=== PATIENT | female | born 1955 | race Caucasian/White ===

== ENCOUNTER 2023-02-05 09:38 | Emergency (ER) | payer MEDICARE, SELFPAY ==
[2023-02-05 09:38] VITALS: BP 145/80; PULSE 65; RESP 15; TEMP 36; O2SAT 100; BMI 26.5
--- NOTE | 2023-02-05 09:41 | RAD_ITS ---
HISTORY: INJURY. TECHNIQUE: XR Hand Min 3 Views. COMPARISON: None. FINDINGS: BONES : Chronic appearing avulsion fracture at the dorsal aspect of the second distal phalanx. Mild cortical irregularity at the base of the fifth metacarpal with overlying soft tissue swelling. JOINTS: No dislocation. Mild degenerative change with interphalangeal joint space narrowing and small osteophytes. RAD/Hand Min 3 Views IMPRESSION: Suspect nondisplaced fracture at the base of the fifth metacarpal. Mild osteoarthritis of the right hand. Electronically Signed: Nishi Sullivan MD at 10:18 EDT ,
--- NOTE | 2023-02-05 11:04 | EDS_ITS ---
HPI History of Present Illness Chief Complaint: Upper Extremity Injury Informant: patient Narrative Narrative: Yesterday patient tripped and fell while outside on the sidewalk. She was walking her dog and the dog's lead got in the way and she tripped over it, fal ling to the pavement against her right hand. This morning it is more bruised and still very sore and she presents to ensure that she did not fracture something. She is right-hand dominant. Pain in the wrist but she can move it pretty well. No other injuries. [facility] Medical History Diabetes mellitus HLD (hyperlipidemia) HTN (hypertension) Home Medications bupropion HCl 100 mg tablet 100 mg PO DAILY 03/25/14 [History Last Taken Unknown] cholecalciferol (vitamin D3) 25 mcg (1,000 unit) capsule (Vitamin D3) unit PO BID 03/25/14 [History Last Taken Unknown] fluoxetine 20 mg capsule 60 mg PO DAILY 03/25/14 [History Last Taken Unknown] hydrochlorothiazide 25 mg tablet 25 mg PO DAILY #30 tabs 03/25/14 [Rx Last Taken Unknown] levothyroxine 150 mcg tablet 150 mcg PO DAILY 03/25/14 [History Last Taken Unknown] lisinopril 10 mg-hydrochlorothiazide 12.5 mg tablet (Zestoretic) 0.5 tab PO DAILY 03/25/14 [History Last Taken Unknown] multivitamin,hp-ulmc-xsoewmuc 27 mg-0.4 mg tablet (Therems-M) 1 tab PO DAILY 03/25/14 [History Last Taken Unknown] omega-3 fatty acids-fish oil 340 mg-1,000 mg capsule (Fish Oil) 1 ea PO BID 03/25/14 [History Last Taken Unknown] prednisone 10 mg tablet 10 mg PO DAILY ##48 03/25/14 [Rx Last Taken Unknown] pregabalin 25 mg capsule 50 mg PO BID 03/25/14 [History Last Taken Unknown] Allergy/AdvReac Type Severity Reaction Status Date / Time meperidine HCl [From Demerol] Allergy Itching Verified 03/25/14 15:34 erythromycin base AdvReac Vomiting Verified 03/25/14 15:34 [Erythromycin Base] NSAIDS (Non-Steroidal AdvReac Other Verified 03/25/14 15:34 Anti-Inflamma Social History Smoking Status: Never smoker ROS ROS ED Constitutional Constitutional ED: Denies chills or fever(s) Musculoskeletal Musculoskeletal: Reports extremity pain; Denies neck pain Integumentary Denies Abrasions, rash or wounds Neurologic Neurologic: Denies paresthesias or weakness EXAM Physical Exam Const Vital Signs: 02/05/23 09:38 Temperature 96.8 F L Temperature Source Temporal Pulse Rate 65 Respiratory Rate 15 Blood Pressure 145/80 H Blood Pressure Mean 101 Pulse Ox 100 Oxygen Delivery Method Room Air Positive well nourished and well developed General Appearance ED: well developed and NAD Neck full ROM and supple Back/Spine normal ROM and normal to inspection Extremity Extremity Narrative: Ecchymosis in the middle of the palm of the right hand, in addition to the dorsum of the hand more to the ulnar aspect. Diffuse tenderness throughout this area, metacarpals 3, 4, 5. The MCPJ's are nontender, there is no rotational deformity of any of the fingers, she can move them fully, and all FDS, FDP, and extensor tendon function is intact. No tenderness at the distal radius or the carpus there, and no pain with axial loading of the thumb. She does have some tenderness in the carpus at the ulnar aspect but not the distal ulna. She can move the wrist without difficulty. Neuro oriented x3, no focal motor deficits and no sensory deficits noted Sensorium / Orientation: alert Psych mental status grossly normal and thought process normal Skin no wounds Rashes: no rashes MDM MDM MDM Narrative Medical decision making narrative: Three-view x-ray series of the right hand appears to show a nondisplaced fracture across the base of the fifth metacarpal, radiology report in agreement. Patient was splinted see the procedure note, offered analgesics she declined she has Tylenol and ibuprofen at home and she will follow-up with orthopedics as an outpatient. We will refer her locally, this appears to be low likelihood that I will be surgical so I do not think she needs to see hand unless orthopedics think she needs to be referred up. Radiography Diagnostic Testing: Clinical Impression(s) from Imaging Studies Hand X-Ray 02/05/23 09:41 IMPRESSION: Suspect nondisplaced fracture at the base of the fifth metacarpal. Mild osteoarthritis of the right hand. Electronically Signed: Nishi Sullivan MD at 10:18 EDT , Procedures Upper Extremity Splints Upper Extremity Splint: Orthoglass and Ulnar gutter (Neurovascularly intact distally after placement.) Splint Fabrication: Fabricated Location: Right Discharge Plan Triage Chief Complaint: Upper Extremity Injury ED Provider: Getachew Yousif Dx/Rx/DC Orders Clinical Impression: Closed fracture of base of fifth metacarpal bone of right hand Instructions: Splint Care, ED Closed Hand Fracture (Adult) Prescriptions: No Action bupropion HCl 100 MG tablet 100 mg PO DAILY levothyroxine 150 MCG tablet 150 mcg PO DAILY Label Comments: DOES NOT TAKE ON TUES lisinopril-hydrochlorothiazide [Zestoretic] 1 TABLET tablet 0.5 tab PO DAILY fluoxetine 20 MG capsule 60 mg PO DAILY cholecalciferol (vitamin D3) [Vitamin D3] 1,000 UNIT capsule PO BID multivitamin,ek-uqyw-nvfphidf [Therems-M] 1 TABLET tablet 1 tab PO DAILY pregabalin 25 MG capsule 50 mg PO BID omega-3 fatty acids-fish oil [Fish Oil] 1 EACH capsule 1 ea PO BID prednisone 10 MG tablet 10 mg PO DAILY Qty: 48 0RF Rx Instructions: 6 po qd x 3 days, 4 po qd x 3 days, 2 po qd x 3 days, 1 po qd x 3 days hydrochlorothiazide 25 MG tablet 25 mg PO DAILY Qty: 30 1RF Primary Care Provider: Bob Rucker Referrals: Oscar Mcdonald DO [Med Staff - Active Staff] - As soon as possible Disposition Disposition: Home, Self Care
== END 2023-02-05 11:15 | disposition home or self-care (01) ==
PROVIDERS: Emergency Provider Emergency Medicine; PCP Family Medicine; Visit Provider Emergency Medicine
DX: S62.316A Displaced fracture of base of fifth metacarpal bone, right hand, initial encounter for closed fracture (principal); E11.9 Type 2 diabetes mellitus without complications; I10 Essential (primary) hypertension; E78.5 Hyperlipidemia, unspecified; Z79.899 Other long term (current) drug therapy; W01.198A Fall on same level from slipping, tripping and stumbling with subsequent striking against other object, initial encounter; Y93.K1 Activity, walking an animal; Y92.89 Other specified places as the place of occurrence of the external cause
CPT/HCPCS: 73130; 99282

== ENCOUNTER 2023-04-18 16:42 | Emergency (ER) | payer MEDICARE, SELFPAY ==
[2023-04-18 16:43] VITALS: BP 168/87; PULSE 71; RESP 18; TEMP 36.1; O2SAT 100; BMI 28.3
--- NOTE | 2023-04-18 16:49 | ED.RN ---
DR GARBER AND OMID MADE AWARE OF PT'S SYMPTOMS, NO STROKE ALERT AT THIS TIME.
[2023-04-18 17:15] VITALS: BMI 28.8
--- NOTE | 2023-04-18 18:01 | CT_ITS ---
EXAM: CT ORBITS WITH INTRAVENOUS CONTRAST CLINICAL INDICATION: left eye pain TECHNIQUE: Helically acquired images were obtained of the orbits. Multiplanar reformations were reviewed. Study was performed with intravenous contrast. This CT exam was performed using one or more of the following dose reduction techniques: automated exposure control, adjustment of the mA and/or kV according to patient size, and/or use of iterative reconstruction technique. CONTRAST: IV 50mL [id number]-[id number] COMPARISON: No relevant prior studies available. FINDINGS: ORBITS: Left ocular hemorrhage. Prior retinal banding. SINUSES: Unremarkable. Clear. BONES/JOINTS: No acute fracture. SOFT TISSUES: Unremarkable. No focal subcutaneous swelling. No discrete fluid collections. No enhancing lesion. CT/Orb Sella Post Fossa Ear W/CON IMPRESSION: Left ocular hemorrhage with prior retinal banding. Electronically Signed: Corine Armenta MD at 19:49 EDT Reading Location ID and State: [id number] / Tel , Service support ,
--- NOTE | 2023-04-18 18:01 | CT_ITS ---
STUDY: CT BRAIN WITHOUT CONTRAST REASON FOR EXAM: Female, 67 years old. left eye pain RADIATION DOSAGE (If Supplied By Facility): CTDIvol = ( 44.99 ) mGy, DLP = ( 749.49 ) mGycm TECHNIQUE: Transaxial CT imaging of the brain was performed without administration of intravenous contrast material. Individualized dose optimization techniques were used for this CT. COMPARISON: No relevant priors. FINDINGS: Normal soft tissue structures. Normal calvarium. There is mild cerebral atrophy with widening of the extra-axial spaces and ventricular dilatation. There are areas of decreased attenuation within the white matter tracts of the supratentorial brain, consistent with microvascular disease changes. There is no intracranial hemorrhage. There are no findings of an acute ischemic infarction. Normal visualized paranasal sinuses. Left ocular hemorrhage with prior retinal banding. CT/Brain/Head without Contrast IMPRESSION: No acute intracranial findings. Microvascular ischemic changes. Atrophy. Left ocular hemorrhage. Electronically Signed: Corine Armenta MD at 19:51 EDT Reading Location ID and State: [id number] / Tel , Service support ,
--- NOTE | 2023-04-18 18:19 | EX.ED.DYSGE1 ---
HPI History of Present Illness Chief Complaint: Neuro S/Sx Narrative Narrative: 67-year-old female presenting from her primary care office ([facility]) for evaluation. Patient states that she has had weeks of intermittent night sweats and she decided she was going to see her primary care physician because it became more persistent. She states that when she went into the office he started asking her if she had any other problems and was concerned about her left eye. He stated to her that her left eye looked like it was bulging. She states that she has had history of retinal tears 3 times that she had surgeries on the eye. She states she never looks at herself really she does not really have vision in that eye. She denies any eye pain. Neither her or her daughter noticed anything about the eye until after it was pointed out by her primary care physician. She has not had any slurred speech, new visual complaints, inability to move her arms or legs. Denies headaches. Denies fevers. [facility] Medical History Diabetes mellitus HLD (hyperlipidemia) HTN (hypertension) Home Medications bupropion HCl 100 mg tablet 100 mg PO DAILY 03/25/14 [History Last Taken Unknown] cholecalciferol (vitamin D3) 25 mcg (1,000 unit) capsule (Vitamin D3) unit PO BID 03/25/14 [History Last Taken Unknown] fluoxetine 20 mg capsule 60 mg PO DAILY 03/25/14 [History Last Taken Unknown] hydrochlorothiazide 25 mg tablet 25 mg PO DAILY #30 tabs 03/25/14 [Rx Last Taken Unknown] levothyroxine 150 mcg tablet 150 mcg PO DAILY 03/25/14 [History Last Taken Unknown] lisinopril 10 mg-hydrochlorothiazide 12.5 mg tablet (Zestoretic) 0.5 tab PO DAILY 03/25/14 [History Last Taken Unknown] multivitamin,iu-tacg-blmtanyd 27 mg-0.4 mg tablet (Therems-M) 1 tab PO DAILY 03/25/14 [History Last Taken Unknown] omega-3 fatty acids-fish oil 340 mg-1,000 mg capsule (Fish Oil) 1 ea PO BID 03/25/14 [History Last Taken Unknown] prednisone 10 mg tablet 10 mg PO DAILY ##48 03/25/14 [Rx Last Taken Unknown] pregabalin 25 mg capsule 50 mg PO BID 03/25/14 [History Last Taken Unknown] Allergy/AdvReac Type Severity Reaction Status Date / Time meperidine HCl [From Demerol] Allergy Itching Verified 04/18/23 16:45 erythromycin base AdvReac Vomiting Verified 04/18/23 16:45 [Erythromycin Base] NSAIDS (Non-Steroidal AdvReac Other Verified 04/18/23 16:45 Anti-Inflamma Social History household members: spouse Smoking Status: Never smoker ROS ROS ED Review of Systems ROS Unobtainable: Denies due to encephalopathy Constitutional Constitutional ED: Reports chills and sweats; Denies fever(s) Eyes Eyes: Denies change in vision ENT ENT ED: Denies rhinorrhea or sore throat Cardiovascular Cardiovascular: Denies chest pain or palpitations Respiratory/Chest Respiratory/Chest: Denies cough or dyspnea Gastrointestinal Gastrointestinal: Denies abdominal pain or constipation Genitourinary Genitourinary ED: Denies dysuria or hematuria Musculoskeletal Musculoskeletal: Denies arthralgias or back pain Integumentary Denies abscess or Abrasions Psychiatric Psychiatric: Denies anxiety or depression Endocrine Endocrinology: Denies cold intolerance or heat intolerance EXAM Physical Exam Const Vital Signs: 04/18/23 16:43 04/18/23 21:55 Temperature 97 F L Temperature Source Temporal Pulse Rate 71 Respiratory Rate 18 16 Blood Pressure 168/87 H Blood Pressure Mean 114 Pulse Ox 100 Oxygen Delivery Method Room Air Positive well nourished General Appearance ED: NAD HEENT Reports moist mucous membranes Eyes EOMs intact bilaterally Eyes Narrative: Left pupil is oval-shaped lying laterally. Patient is unable to count fingers (this is baseline) with the left eye. Extraocular motion is intact. Left eye does not appear to be bulging to me. Conjunctiva sclera appear normal. Chest Wall inspection of chest normal Resp normal respiratory effort and clear to auscultation bilaterally Cardio regular rate and regular rhythm Neuro oriented x3 and CN's II-XII intact bilaterally Sensorium / Orientation: alert Psych mental status grossly normal Skin no rashes or lesions noted MDM MDM MDM Narrative Medical decision making narrative: Patient presenting for evaluation of the sweats that she has been having but also apparently she was told she has a bulging eye. She does not feel like her eyes bulging. Her and daughter did not notice the eye bulging until it was pointed out to them. She does not have any other symptoms with the eye that is new. She has peripheral vision loss which is not new and she knows of this. She had several surgeries on her left eye and she had retinal tears. She is told me that she saw her eye doctor in November and her eye was okay. I was told by Dr. Rucker that he had concern she had some facial weakness on the right however her nasolabial folds and her smile is higher on this side. When I have reviewed this for her family they state that there is nothing abnormal. He did express concern that she could possibly have a tumor/mass behind her left eye that is pushing it outward. I will obtain a CT brain and a CT of the orbit. CBC will be obtained to assess white blood cell count, hemoglobin, platelets, CMP to assess renal function, liver function, electrolytes. TSH to assess thyroid function. CT brain and CT orbits show a ocular hemorrhage previous banding. CBC and CMP are unremarkable. TSH normal. UA negative for infection. Spoke with Erik Kay regarding the case and he felt that the patient was not having significant symptoms or new pain that likely this was old. The patient feels is probably old 2. She wants to follow-up with her doctor as an outpatient. I did give her Dr. Fleming information to make sure that she can be seen tomorrow as he wanted to check her eyes. At this point the patient stable for discharge home. Impression: 1. Night sweats 2. Ocular hemorrhage Lab Data Attestation: I reviewed the patient's lab results. Labs: Laboratory Results - last 24 hr 04/18/23 18:30 WBC 5.1 RBC 4.02 L Hgb 11.8 L Hct 37.2 MCV 92.5 MCH 29.4 MCHC 31.7 L RDW Std Deviation 45.8 H RDW Coeff of [place] 13.4 Plt Count 296 MPV 8.6 Immature Gran % (Auto) 0.200 Neut % (Auto) 59.3 Lymph % (Auto) 31.8 Knott % (Auto) 6.7 Eos % (Auto) 1.4 Baso % (Auto) 0.6 Absolute Neuts (auto) 3.0 Absolute Lymphs (auto) 1.61 Nucleated RBC % 0 Sodium 139 Potassium 3.7 Chloride 103 Carbon Dioxide 28.0 Anion Gap 8 BUN 20 H Creatinine 0.83 Estim Creat Clear Calc 52.92 Est GFR (MDRD) Af Amer 88 Est GFR (MDRD) Non-Af 72 BUN/Creatinine Ratio 24.1 H Glucose 85 Calcium 8.9 Total Bilirubin 0.30 AST 16 ALT 23 Alkaline Phosphatase 73 Total Protein 7.0 Albumin 3.6 Globulin 3.4 Albumin/Globulin Ratio 1.1 TSH 0.37 Urine Color Yellow Urine Clarity Sl. Cloudy Urine pH 6.0 Ur Specific [place] 1.015 Urine Protein Negative Urine Glucose (UA) Normal Urine Ketones Negative Urine Occult Blood 150 H Urine Nitrite Negative Urine Bilirubin Negative Urine Urobilinogen Normal Ur Leukocyte Esterase 25 H Urine RBC 5-10 SEEN Urine WBC 0 SEEN Ur Squamous Epith Cells 0 SEEN Urine Bacteria 0 SEEN Urine Mucus 0 SEEN POC Glucose 82 Radiography Diagnostic Testing: Clinical Impression(s) from Imaging Studies Brain CT 04/18/23 18:01 IMPRESSION: No acute intracranial findings. Microvascular ischemic changes. Atrophy. Left ocular hemorrhage. Electronically Signed: Corine Armenta MD at 19:51 EDT Reading Location ID and State: Elizabeth Mays MD Tel , Service support , CT Orbit Sella Inner 04/18/23 18:01 IMPRESSION: Left ocular hemorrhage with prior retinal banding. Electronically Signed: Corine Armenta MD at 19:49 EDT Reading Location ID and State: Elizabeth Mays MD Tel , Service support , Chest X-Ray 04/18/23 18:44 IMPRESSION: No radiographic evidence of acute cardiopulmonary disease. Electronically Signed: Corine Armenta MD at 19:19 EDT Reading Location ID and State: Elizabeth Mays MD Tel , Service support , Discharge Plan Triage Chief Complaint: Neuro S/Sx ED Provider: Spencer Arambula Dx/Rx/DC Orders Instructions: ED Retinal Tear Prescriptions: No Action bupropion HCl 100 MG tablet 100 mg PO DAILY levothyroxine 150 MCG tablet 150 mcg PO DAILY Patient Comments: DOES NOT TAKE ON TUES lisinopril-hydrochlorothiazide [Zestoretic] 1 TABLET tablet 0.5 tab PO DAILY fluoxetine 20 MG capsule 60 mg PO DAILY cholecalciferol (vitamin D3) [Vitamin D3] 1,000 UNIT capsule PO BID multivitamin,xs-ftmg-pnmqslqn [Therems-M] 1 TABLET tablet 1 tab PO DAILY pregabalin 25 MG capsule 50 mg PO BID omega-3 fatty acids-fish oil [Fish Oil] 1 EACH capsule 1 ea PO BID prednisone 10 MG tablet 10 mg PO DAILY Qty: 48 0RF Rx Instructions: 6 po qd x 3 days, 4 po qd x 3 days, 2 po qd x 3 days, 1 po qd x 3 days hydrochlorothiazide 25 MG tablet 25 mg PO DAILY Qty: 30 1RF Primary Care Provider: Bob Rucker Referrals: Erik Kay MD [Med Staff - Active Staff] - As soon as possible Bob Rucker MD [Primary Care Provider] - Disposition Disposition: Home, Self Care
[2023-04-18 18:43] LABS: Bacteria 0 SEEN /hpf (None Seen); Mucous, Urine 0 SEEN /hpf (<or=2+); Squamous Epithelial Cells - UA 0 SEEN /hpf (5-10); White Blood Cells 0 SEEN /hpf (0-5)
--- NOTE | 2023-04-18 18:44 | RAD_ITS ---
INDICATION: weakness EXAMINATION/TECHNIQUE: X-RAY - XR Chest 1 View COMPARISON: FINDINGS: LINES/DEVICES: None. LUNGS: No consolidation, edema or effusion. No pneumothorax. MEDIASTINUM AND CARDIOVASCULAR STRUCTURES: Cardiac silhouette not enlarged. Central airways and mediastinal contour are unremarkable. BONES AND SOFT TISSUES: Unremarkable. RAD/Chest 1 View (Portable) IMPRESSION: No radiographic evidence of acute cardiopulmonary disease. Electronically Signed: Corine Armenta MD at 19:19 EDT Reading Location ID and State: [id number] / Tel , Service support ,
[2023-04-18 18:47] LABS: Absolute Lymphocyte Count 1.61 X10^3/uL (0.83-4.51); Basophil# 0.03 X10^3/uL; Basophil% 0.6 % (0-1); Eosinophil# 0.07 X10^3/uL; Eosinophils% 1.4 % (0-5); Hematocrit 37.2 % (37-47); Hemoglobin 11.8 g/dL (12.0-15.0); Lymphocyte # 1.61 X10^3/ul (0.83-4.51); Lymphocyte % 31.8 % (19-41); Mean Corp Hgb Conc 31.7 g/dL (32-36); Mean Corpuscular Hgb 29.4 pg (27.0-32.0); Mean Corpuscular Volume 92.5 fL (81-99); Mean Platelet Vol. 8.6 fl (6.2-12.0); Monocyte# 0.34 X10^3/uL; Monocyte% 6.7 % (0-10); NRBC Flagged by Analyzer 0 % (0-5); Neutrophil % 59.3 % (47-70); Platelet Count 296 K/mm3 (150-450); RBC Distribution Width CV 13.4 % (11.6-14.6); RBC Distribution Width SD 45.8 fl (35.1-43.9); Red Blood Count 4.02 M/mm3 (4.2-5.4); White Blood Count 5.1 K/mm3 (4.4-11.0)
[2023-04-18 18:55] LABS: Bedside Glucose 82 mg/dL (74-106)
[2023-04-18 19:02] LABS: Color, Urine Yellow (Yellow); Glucose, Dipstick Normal (Normal); Ketone-Dipstick Negative (Negative); Leukocyte Esterase-Dipstick 25 /ul (Negative); Nitrite-Dipstick Negative (Negative); Occult Blood-Urine 150 /ul (Negative); Protein-Dipstick Negative (Negative); Specific Gravity, Urine 1.015 (1.002-1.030); Urine Bilirubin Dipstick Negative (Negative); Urine Clarity Sl. Cloudy (Clear); Urine Urobilinogen Normal (Normal)
[2023-04-18 19:10] LABS: ALB/GLOB Ratio 1.1 RATIO (0.9-2.4); AST(SGOT) 16 U/L (15-37); Alanine Aminotransfer ALT/SGPT 23 U/L (13-56); Albumin, Serum 3.6 g/dL (3.2-5.0); Alkaline Phosphatase 73 U/L (45-117); Anion Gap 8 (5-15); BUN 20 mg/dL (7-18); BUN/Creat Ratio 24.1 RATIO (10-20); Calcium,Total 8.9 mg/dL (8.5-10.1); Chloride 103 mmol/L (98-107); Creatinine, Serum 0.83 mg/dL (0.55-1.02); EST Glomerular Filtration Rate 72 mL/min (>60); Est Glom Filt Rate - Afr Amer 88 mL/min (>60); Estimated Creatinine Clearance 52.92 ml/min; Globulin 3.4 g/dL (2.2-4.2); Glucose 85 mg/dL (74-106); Potassium 3.7 mmol/L (3.5-5.1); Sodium Level 139 mmol/L (136-145); Thyroid Stim Hormone (TSH) 0.37 uIU/mL (0.358-3.74)
[2023-04-18 19:22] LABS: Red Blood Cells-Urine 5-10 SEEN /hpf (0-5)
[2023-04-18 21:55] VITALS: RESP 16
[2023-04-18 21:56] VITALS: RESP 16
== END 2023-04-18 21:56 | disposition home or self-care (01) ==
PROVIDERS: Emergency Provider Student in an Organized Health Care Education/Training Program; PCP Family Medicine; Visit Provider Student in an Organized Health Care Education/Training Program
DX: H11.30 Conjunctival hemorrhage, unspecified eye (principal); E11.9 Type 2 diabetes mellitus without complications; I10 Essential (primary) hypertension; E78.5 Hyperlipidemia, unspecified; Z79.899 Other long term (current) drug therapy; R61 Generalized hyperhidrosis
CPT/HCPCS: 70450; 70481; 71045; 80053; 81001; 82962; 84443; 85025; 99282; Q9967